=== PATIENT | male | born 1970 | race Caucasian/White ===

== ENCOUNTER → 2017-04-16 | Outpatient (CLI) | payer OTHER ==
[2017-04-16 13:27] LABS: BASO % 0.1 %; BASO ABS # 0.02 K/uL (0-0.2); COMPLETE YES; IG% 0.4 %; LYMPH % 3.4 %; LYMPH ABS # 0.56 K/uL (1.2-3.4); MEAN CELL VOLUME 90.9 fL (80-100); MEAN CORPUSCULAR HEMOGLOBIN 30.3 pg (25-34); MEAN CORPUSCULAR HGB CONC 33.3 g/dl (32-36); MEAN PLATELET VOLUME 9.6 fL (7.4-10.4); MONO % 8.4 %; NEUT % 87.7 %; PLATELET COUNT 202 K/uL (130-400); RED BLOOD COUNT 4.62 M/uL (4.7-6.1); WHITE BLOOD COUNT 16.59 K/uL (4.8-10.8)
[2017-04-16 13:42] LABS: ALB/GLOB RATIO 0.7 (0.9-2); ALKALINE PHOSPHATASE 69 U/L (45-117); ALT/SGPT 24 U/L (12-78); AST/SGOT 11 U/L (15-37); BLOOD UREA NITROGEN 10 mg/dl (7-18); BUN/CREATININE RATIO 11.1 (10-20); CALCIUM 8.7 mg/dl (8.5-10.1); CARBON DIOXIDE 25 mmol/L (21-32); CHLORIDE 100 mmol/L (98-107); CREATININE 0.93 mg/dl (0.60-1.40); GLUCOSE 119 mg/dl (70-99); POTASSIUM 3.9 mmol/L (3.5-5.1); SODIUM 133 mmol/L (136-145)
== END | disposition home or self-care (01) ==
LOC: C.LABMFLN 09:04
PROVIDERS: ATTEND Family Medicine
DX: N41.0 Acute prostatitis (principal)

== ENCOUNTER → 2017-04-27 | Outpatient (CLI) | payer OTHER ==
[2017-04-27 13:13] LABS: BASO % 0.3 %; BASO ABS # 0.03 K/uL (0-0.2); COMPLETE YES; EOS % 0.7 %; HEMATOCRIT 39.2 % (42-52); IG% 1.2 %; LYMPH % 10.4 %; LYMPH ABS # 1.05 K/uL (1.2-3.4); MEAN CELL VOLUME 93.1 fL (80-100); MEAN CORPUSCULAR HEMOGLOBIN 30.4 pg (25-34); MEAN CORPUSCULAR HGB CONC 32.7 g/dl (32-36); MEAN PLATELET VOLUME 8.6 fL (7.4-10.4); MONO % 9.8 %; NEUT % 77.6 %; PLATELET COUNT 652 K/uL (130-400); RED BLOOD COUNT 4.21 M/uL (4.7-6.1); WHITE BLOOD COUNT 10.13 K/uL (4.8-10.8)
== END | disposition home or self-care (01) ==
LOC: C.LABMFLN 08:58
PROVIDERS: ATTEND Family Medicine
DX: D72.829 Elevated white blood cell count, unspecified (principal)

== ENCOUNTER → 2017-11-23 | Outpatient (CLI) | payer OTHER ==
[~2017-11-23] MED LIST: CEFD1CAP14 PO; CIPR-255 PO; OXYB15TA PO
--- NOTE | 2017-11-23 10:50 | DIAGNOSTIC IMAGING REPORT ---
CT SCAN OF THE ABDOMEN AND PELVIS WITHOUT CONTRAST CLINICAL HISTORY: Evaluation of IVC filter COMPARISON STUDY: No previous studies for comparison. TECHNIQUE: CT scan of the abdomen and pelvis was performed from the lung bases to the proximal femurs. Images are reviewed in the axial, sagittal, and coronal planes. IV contrast was not administered for this examination. A dose lowering technique was utilized adhering to the principles of ALARA. CT DOSE: 924.38 mGy.cm FINDINGS: Lower chest: The heart is normal in size and configuration, without pericardial effusion. The lung bases and pleural spaces are clear. Liver: The unenhanced liver is normal in size, contour, and attenuation. There is no intrahepatic biliary ductal dilatation. Gallbladder: Unremarkable. Spleen: Normal in size and attenuation. Pancreas: Unremarkable. Adrenal glands: Unremarkable. Kidneys: The unenhanced kidneys are normal in size without hydronephrosis. There is no contour deforming renal mass lesion. No renal calculi are identified. Bowel: There is mild fecal retention. There are no transition zones indicate bowel obstruction. There is no evidence of acute appendicitis. There is no evidence of acute diverticulitis. Peritoneum: There is no intraperitoneal free air or abdominal ascites. Vasculature: The abdominal aorta is normal in course and caliber. There is an IVC filter present. The apex is located at the L1 level, with its tip oriented into the left renal vein. . Multiple struts protrude beyond the IVC lumen, one of which is within or abutting the duodenal wall. Adenopathy: None. Pelvic viscera: There is mild bladder wall thickening Skeletal structures: There is chronic subluxation of the right hip. There are chronic iliac bone deformities. There are postsurgical changes present within the lower thoracic and lumbar spine. There are areas of heterotopic ossification. There is bilateral psoas muscle atrophy. IMPRESSION: 1. The IVC filter is positioned with its apex at the L1 level with its tip oriented into the left renal vein. Multiple struts extruded beyond the IVC lumen, one of which is within or abutting the duodenal wall 2. Chronic hip and pelvic bony deformities 3. Mild fecal retention 4. No acute inflammatory changes Electronically signed by: Sandro Leiva M.D. 11/23/2017 10:49 AM Dictated Date/Time: 11/23/2017 10:41 AM
== END | disposition home or self-care (01) ==
LOC: C.CTS 10:27
PROVIDERS: ATTEND Student in an Organized Health Care Education/Training Program
DX: Z95.828 Presence of other vascular implants and grafts (principal)

== ENCOUNTER 2018-07-04 14:02 | Emergency (ER) | payer OTHER ==
[~2018-07-04] VITALS: Ht 182.9 cm; Wt 88.0 kg
[2018-07-04 14:21] VITALS: TEMP 37.3; Ht 182.9 cm; Wt 88.0 kg
[2018-07-04] MEDS ORDERED: OXYB15TA PO (16:11)
[2018-07-04] MEDS ORDERED: CEFD1CAP14 PO (16:11)
[2018-07-04] MEDS ORDERED: SODIUM CHLORIDE 0.9% 1000ML 1,000 ML IV STA (16:12)
[2018-07-04 17:07] LABS: BASO % 0.2 %; BASO ABS # 0.02 K/uL (0-0.2); EOS % 4.9 %; HEMATOCRIT 45.2 % (42-52); HEMOGLOBIN 15.5 g/dL (14.0-18.0); IG# 0.02 K/uL (0.00-0.02); LYMPH % 12.8 %; LYMPH ABS # 1.04 K/uL (1.2-3.4); MEAN CELL VOLUME 89.5 fL (80-100); MEAN CORPUSCULAR HEMOGLOBIN 30.7 pg (25-34); MEAN CORPUSCULAR HGB CONC 34.3 g/dl (32-36); MEAN PLATELET VOLUME 9.8 fL (7.4-10.4); MONO ABS # 0.73 K/uL (0.11-0.59); NEUT % 72.9 %; NEUT ABS # 5.93 K/uL (1.4-6.5); PLATELET COUNT 246 K/uL (130-400); RED CELL DISTRIBUTION WIDTH SD 45.6 fL (36.4-46.3); WHITE BLOOD COUNT 8.14 K/uL (4.8-10.8)
[2018-07-04 17:33] LABS: ALBUMIN 3.7 gm/dl (3.4-5.0); CALCIUM 8.8 mg/dl (8.5-10.1); CREATININE 0.78 mg/dl (0.60-1.40); POTASSIUM 3.7 mmol/L (3.5-5.1); TOTAL PROTEIN 8.2 gm/dl (6.4-8.2)
--- NOTE | 2018-07-04 17:39 | DIAGNOSTIC IMAGING REPORT ---
RENAL ULTRASOUND CLINICAL HISTORY: Hydronephrosis at OSH, hematuria, self-catheterization. COMPARISON STUDY: Renal ultrasound July 06, [address] of the abdomen and pelvis November 23, 2017. TECHNIQUE: Sonography of the kidneys and the urinary bladder was performed. FINDINGS: Right kidney measures 10.6 x 6.2 x 5.4 cm and the left measures 12.2 x 7.2 x 6.8 cm. There is moderate bilateral hydronephrosis, left greater than right. This was not evident on CT of November 23, 2017. Marked bladder wall thickening is noted, accentuated by underdistention. There may be a small amount of debris within the bladder. Neither ureteral jet was identified. IMPRESSION: 1. Moderate bilateral hydronephrosis, left greater than right. This was not evident on CT of November 23, 2017. 2. Marked bladder wall thickening which is nonspecific but may reflect a neurogenic bladder. Electronically signed by: Favio Crabtree M.D. 07/04/2018 5:38 PM Dictated Date/Time: 07/04/2018 5:35 PM
[2018-07-04] MEDS ORDERED: CIPR-255 PO (18:14)
[2018-07-04 18:46] VITALS: BP 115/76; PULSE 67; O2SAT 98
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
== END 2018-07-04 18:47 | disposition home or self-care (01) ==
LOC: C.EDB 14:04
DX: N30.20 Other chronic cystitis without hematuria (principal); N31.9 Neuromuscular dysfunction of bladder, unspecified; N13.30 Unspecified hydronephrosis; G82.20 Paraplegia, unspecified; Z88.8 Allergy status to other drugs, medicaments and biological substances; Z88.2 Allergy status to sulfonamides

== ENCOUNTER → 2018-07-12 | Outpatient (CLI) | payer OTHER | END | disposition home or self-care (01) | LOC: C.LABMFLN 14:34 | PROVIDERS: ATTEND Family Medicine | DX: R31.9 Hematuria, unspecified (principal); N39.0 Urinary tract infection, site not specified ==